=== PATIENT | female | born 1990 | race Asian ===

== ENCOUNTER → 2024-03-19 16:02 | Outpatient (REF) | payer OTHER, SELFPAY | LOC: RCS 16:02 | PROVIDERS: ATTENDING PHYSICIAN Nurse Practitioner Adult Health | DX: R01.1 Cardiac murmur, unspecified (principal) | CPT/HCPCS: 93306 ==

== ENCOUNTER → 2025-01-07 08:57 | Outpatient (REF) | payer OTHER, SELFPAY | LOC: PNTC 08:57 | PROVIDERS: ATTENDING PHYSICIAN Student in an Organized Health Care Education/Training Program | DX: O09.522 Supervision of elderly multigravida, second trimester (principal); O09.812 Supervision of pregnancy resulting from assisted reproductive technology, second trimester; Z3A.20 20 weeks gestation of pregnancy | CPT/HCPCS: 76811; 76817 ==

== ENCOUNTER 2025-04-30 11:14 | Observation (INO) | payer OTHER, SELFPAY ==
[2025-04-30 11:51] VITALS: BP 138/90; BMI 28.2
[2025-04-30] MEDS: TYLENOL 1000 MG PO (12:03)
[2025-04-30 12:07] LABS: Urine Character Clear (Clear)
[2025-04-30 12:12] LABS: Hematocrit 43.6 % (37.0-47.0); Hemoglobin 14.2 g/dL (12.0-16.0); Mean Corp Hgb Conc. 32.6 g/dL (33.0-37.0); Mean Corpuscular Volume 86.7 fL (81.0-99.0); Nucleated Red Blood Cells % 0 %; Platelet Count 233 10^3/uL (130-400); Red Cell Dist. Width 12.9 % (11.5-14.5)
[2025-04-30 12:20] LABS: ALT (SGPT) 18 U/L (0-35); AST (SGOT) 25 U/L (14-36); Albumin 3.8 g/dl (3.5-5.0); Alkaline Phosphatase 197 U/L (38-126); Blood Urea Nitrogen 10 mg/dl (7-17); Calcium 10.0 mg/dl (8.4-10.2); Carbon Dioxide 19 mmol/L (22-30); Chloride 107 mmol/L (98-107); Estimated Creatinine Clearance 119 ml/min; Glucose 67 mg/dl (70-99); Potassium 4.0 mmol/L (3.5-5.1); Sodium 133 mmol/L (135-145); Total Protein 7.1 g/dl (6.3-8.2); eGFR > 60.00
== END 2025-04-30 13:47 | disposition home or self-care (01) ==
LOC: LDRP 11:14
PROVIDERS: ADMITTING PHYSICIAN Obstetrics & Gynecology; ATTENDING PHYSICIAN Obstetrics & Gynecology
DX: O14.03 Mild to moderate pre-eclampsia, third trimester (principal); Z3A.36 36 weeks gestation of pregnancy; O09.523 Supervision of elderly multigravida, third trimester; Z31.83 Encounter for assisted reproductive fertility procedure cycle; O09.893 Supervision of other high risk pregnancies, third trimester; O09.813 Supervision of pregnancy resulting from assisted reproductive technology, third trimester
CPT/HCPCS: 59025; 76815; 80053; 81003; 82570; 84156; 85025; 86850; 86900; 86901; 87070; 87077; 87086; 87147; G0378

== ENCOUNTER 2025-05-03 07:48 | Inpatient (IN) | payer OTHER, SELFPAY ==
[2025-05-03] MEDS: LR 1000 IV ×2 (08:17→13:09)
[2025-05-03 08:22] VITALS: BMI 28.2
[2025-05-03 08:25] VITALS: BP 128/92
[2025-05-03 08:38] LABS: Hematocrit 40.2 % (37.0-47.0); Hemoglobin 13.7 g/dL (12.0-16.0); Mean Corp Hgb Conc. 34.1 g/dL (33.0-37.0); Mean Corpuscular Volume 86.8 fL (81.0-99.0); Nucleated Red Blood Cells % 0 %; Platelet Count 217 10^3/uL (130-400); Red Cell Dist. Width 12.7 % (11.5-14.5)
[2025-05-03] MEDS: CYTOTEC 25 MICROGRAM PO (08:58)
[2025-05-03] MEDS: PENICILLIN 110 UNITS IV (09:04)
[2025-05-03 09:37] LABS: ALT (SGPT) 17 U/L (0-35); AST (SGOT) 21 U/L (14-36); Albumin 3.3 g/dl (3.5-5.0); Alkaline Phosphatase 174 U/L (38-126); Blood Urea Nitrogen 8 mg/dl (7-17); Calcium 9.4 mg/dl (8.4-10.2); Carbon Dioxide 15 mmol/L (22-30); Chloride 109 mmol/L (98-107); Estimated Creatinine Clearance 119 ml/min; Glucose 106 mg/dl (70-99); Potassium 3.8 mmol/L (3.5-5.1); Sodium 133 mmol/L (135-145); Total Protein 6.4 g/dl (6.3-8.2); eGFR > 60.00
[2025-05-03] MEDS: CYTOTEC 50 MICROGRAM PO (13:07)
[2025-05-03] MEDS: PENICILLIN 55 UNITS IV ×2 (13:07→17:01)
[2025-05-03] MEDS: FENTANYL/BUPIVACAINE 100 EPIDURAL (17:30)
[2025-05-03] MEDS: SUBLIMAZE 100 MCG EPIDURAL (17:30)
[2025-05-03] MEDS: PITOCIN 30 UNITS/NSS 500 ML IV ×2 (18:27→20:33)
[2025-05-03 20:04] LABS: Cord VBG B.E. - POC -5.4 mmol/L; Cord VBG HCO3 - POC 21 mmol/L; Cord VBG O2 Sat % - POC 50.7 %; Cord VBG pCO2 - POC 40 mmHg; Cord VBG pH - POC 7.31; Cord VBG pO2 - POC 30 mmHg
[2025-05-04] MEDS: MOTRIN 600 MG PO ×3 (04:19→21:04)
[2025-05-04 04:53] LABS: Hematocrit 40.4 % (37.0-47.0); Hemoglobin 13.3 g/dL (12.0-16.0)
[2025-05-04] MEDS: TYLENOL 650 MG PO ×2 (09:20→21:04)
[2025-05-04] MEDS: COLACE 100 MG PO ×2 (09:20→21:04)
[2025-05-04] MEDS: PRENATAL PLUS 1 TABLET PO (09:20)
[2025-05-04] MEDS: COLACE PO (18:50)
[2025-05-05] MEDS: MOTRIN 600 MG PO (09:11)
[2025-05-05] MEDS: PRENATAL PLUS 1 TABLET PO (09:11)
[2025-05-05] MEDS: TYLENOL 650 MG PO (09:11)
[2025-05-05] MEDS: COLACE 100 MG PO (09:12)
[2025-05-06 08:21] LABS: Cord ABG B.E. - POC -5.3 mmol/L; Cord ABG HCO3 - POC 24 mmol/L; Cord ABG pCO2 - POC 58 mmHg; Cord ABG pH - POC 7.21; Cord ABG pO2 - POC < 18 mmHg
[2025-05-08 11:23] LABS: Syphilis/T. pallidum Ab Reflex Negative (Negative)
== END 2025-05-05 12:40 | disposition home or self-care (01) | DRG 807 ==
LOC: LDRP 07:48
PROVIDERS: Obstetrics & Gynecology; ADMITTING PHYSICIAN Student in an Organized Health Care Education/Training Program; FAMILY PHYSICIAN Family Medicine
PROC: 0U7C7DJ Dilation of Cervix with Intraluminal Device, Temporary, Via Natural or Artificial Opening (ICD-10-PCS; 2025-05-03)
PROC: 3E033VJ Introduction of Other Hormone into Peripheral Vein, Percutaneous Approach (ICD-10-PCS; 2025-05-03)
PROC: 3E0DXGC Introduction of Other Therapeutic Substance into Mouth and Pharynx, External Approach (ICD-10-PCS; 2025-05-03)
PROC: 10E0XZZ Delivery of Products of Conception, External Approach (ICD-10-PCS; 2025-05-03)
PROC: 10907ZC Drainage of Amniotic Fluid, Therapeutic from Products of Conception, Via Natural or Artificial Opening (ICD-10-PCS; 2025-05-03)
DX: O14.04 Mild to moderate pre-eclampsia, complicating childbirth (principal); Z37.0 Single live birth; O99.824 Streptococcus B carrier state complicating childbirth; Z3A.37 37 weeks gestation of pregnancy; O35.BXX0 Maternal care for other (suspected) fetal abnormality and damage, fetal cardiac anomalies, not applicable or unspecified; O76 Abnormality in fetal heart rate and rhythm complicating labor and delivery; O69.81X0 Labor and delivery complicated by cord around neck, without compression, not applicable or unspecified
CPT/HCPCS: 80053; 85014; 85018; 85025; 86780; 86850; 86900; 86901; 88307